=== PATIENT | female | born 1985 | race African-American/Black ===

== ENCOUNTER 2024-05-10 15:39 | Emergency (ER) | payer OTHER ==
[~2024-05-10] VITALS: Ht 167.6 cm; Wt 54.0 kg
[2024-05-10 15:41] VITALS: O2SAT 95
[2024-05-10] MEDS: LEVETIRACETAM 500MG PREMIX 100 ML IV ONE (16:23)
[2024-05-10 17:07] LABS: BASOPHILS % 0.6 % (0.0-2.0); EOSINOPHILS % 0.1 % (0.0-5.0); HEMATOCRIT. 36.5 % (36.0-48.0); HEMOGLOBIN. 11.9 g/dL (12.0-16.0); LYMPHOCYTES % 21.3 % (20.0-50.0); MEAN CORPUSCULAR HEMOGLOBIN 29.1 pg (28.0-32.0); MEAN CORPUSCULAR HGB CONC 32.7 g/dL (31.0-37.0); MEAN CORPUSCULAR VOLUME 88.9 fL (81.0-99.0); MEAN PLATELET VOLUME 8.6 fl (7.4-10.4); MONOCYTES % 5.7 % (2.0-8.0); NEUTROPHILS % 72.3 % (40.0-76.0); PLATELET 221 x1000/uL (130-400); RED BLOOD CELL COUNT 4.11 mill/uL (4.2-5.4); RED CELL DISTRIBUTION WIDTH 14.8 % (11.6-14.6)
[2024-05-10 17:20] LABS: CARBON DIOXIDE 20 mEq/L (21-32); CHLORIDE 107 mEq/L (98-107); POTASSIUM 3.8 mEq/L (3.5-5.1); SODIUM 137 mEq/L (136-145)
[2024-05-10 17:21] LABS: CALCIUM 9.3 mg/dL (8.7-10.4)
[2024-05-10 17:26] LABS: GLUCOSE 116 mg/dL (70-105); UREA NITROGEN BLOOD 11 mg/dL (9-23)
[2024-05-10 22:14] VITALS: BP 119/65; PULSE 88; RESP 16; TEMP 36.94740; O2SAT 96
== END 2024-05-10 22:15 | disposition home or self-care (01) ==
LOC: ER 15:39
DX: G40.909 Epilepsy, unspecified, not intractable, without status epilepticus (principal)
CPT/HCPCS: 99285; 96365; 80048; 85025; 36415; J1953